=== PATIENT | male | born 1965 | race African-American/Black ===

== ENCOUNTER 2017-01-13 10:38 | Inpatient (IN) ==
[2017-01-13] MEDS ORDERED: ASPIRIN 325 MG TABLET PO STA (11:26)
[2017-01-13] MEDS ORDERED: ONDANSETRON 4 MG/2 ML VIAL IV STA (11:26)
[2017-01-13] MEDS ORDERED: ASPIRIN 325 MG TABLET ONE (11:53)
[2017-01-13] MEDS ORDERED: hydrALAZINE 20 MG/1 ML VIAL ONE (11:53)
[2017-01-13] MEDS ORDERED: ONDANSETRON 4 MG/2 ML VIAL ONE (11:53)
[2017-01-13] MEDS ORDERED: hydrALAZINE 20 MG/1 ML VIAL IV STA ×2 (11:58→14:30)
[2017-01-13 12:21] LABS: Basophils % 0.6 % (0.0-0.8); Eosinophils # 0.1 10*3/uL (0.0-0.87); Hematocrit 50.3 VOL% (42.0-52.0); Hemoglobin 17.5 GM/DL (14.0-18.0); Immature Granulocytes % 0.4 %; Immature Granulocytes Absolute 0.02 #; Lymphocytes # 1.3 10*3/uL (1.4-4.0); Lymphocytes % 26.9 % (21.2-54.2); Mean Corpuscular HGB Conc 34.8 GM/DL (32-36); Mean Corpuscular Hemoglobin 32 PG (27-34); Mean Corpuscular Volume 91.1 FL (87-102); Mean Platelet Volume 10.1 FL (9.6-12.0); Monocytes # 0.4 10*3/uL (0.11-0.8); Monocytes % 8.1 % (1.7-12.7); Platelet Count 189 T/CUMM (130-400); Red Blood Count 5.52 MC/CUMM (3.8-5.5); Red Cell Distribution Width 13.2 % (9.3-17.3); White Blood Count 4.8 T/CUMM (4-12)
[2017-01-13 12:28] LABS: INR 1.1; PT Patient Result 11.2 SECS; Partial Thromboplastin Time 28.7 SECS (0-40)
[2017-01-13 13:19] LABS: Alanine Aminotransferase 47 U/L (16-61); Albumin 4.1 G/DL (3.4-5.0); Alkaline Phosphatase 53 U/L (45-117); Aspartate Amino Transferase 30 U/L (0-37); Blood Urea Nitrogen 8 MG/DL (7-18); Calcium 9.9 MG/DL (8.5-10.1); Glucose 87 MG/DL (74-106); Osmolality,Calculated 273.5 MOS/KG (273-304); Potassium 3.8 MMOL/L (3.5-5.1); Sodium 139 MMOL/L (136-145); Total Protein 7.5 G/DL (6.4-8.3); Troponin I Only 0.019 NG/ML (0.00-0.045)
[2017-01-13] MEDS ORDERED: ACETAMINOPHEN 325 MG TABLET PO PRN (15:17)
[2017-01-13] MEDS ORDERED: ONDANSETRON 4 MG/2 ML VIAL IV PRN (15:17)
[2017-01-13 16:53] LABS: Risk Ratio 1.92; VLDL CHOLESTEROL 8.8 MG/DL
[2017-01-13] MEDS ORDERED: amLODIPine 10 MG TABLET PO ONE (18:43)
[2017-01-13] MEDS: SODIUM CHLORIDE 0.9% 1,000 ML IV SCH (18:47)
[2017-01-14] MEDS: SODIUM CHLORIDE 0.9% 1,000 ML IV SCH (04:23)
[2017-01-14 06:33] LABS: Basophils % 0.8 % (0.0-0.8); Eosinophils # 0.1 10*3/uL (0.0-0.87); Eosinophils % 1.6 % (0.00-10.9); Hematocrit 48.3 VOL% (42.0-52.0); Hemoglobin 16.5 GM/DL (14.0-18.0); Immature Granulocytes % 0.4 %; Immature Granulocytes Absolute 0.02 #; Lymphocytes # 1.5 10*3/uL (1.4-4.0); Lymphocytes % 29.4 % (21.2-54.2); Mean Corpuscular HGB Conc 34.2 GM/DL (32-36); Mean Corpuscular Hemoglobin 32 PG (27-34); Mean Corpuscular Volume 92.4 FL (87-102); Mean Platelet Volume 10.6 FL (9.6-12.0); Monocytes # 0.5 10*3/uL (0.11-0.8); Monocytes % 9.5 % (1.7-12.7); Neutrophils % 58.3 % (38.7-73.9); Platelet Count 183 T/CUMM (130-400); Red Blood Count 5.23 MC/CUMM (3.8-5.5); Red Cell Distribution Width 13.4 % (9.3-17.3); White Blood Count 5.1 T/CUMM (4-12)
[2017-01-14 06:58] LABS: Calcium 8.7 MG/DL (8.5-10.1); Osmolality,Calculated 278.3 MOS/KG (273-304); Potassium 3.9 MMOL/L (3.5-5.1)
[2017-01-14] MEDS ORDERED: ASPIRIN EC 81 MG TABLET PO SCH (09:00)
[2017-01-14] MEDS ORDERED: PANTOPRAZOLE 40 MG TABLET PO SCH (09:00)
[2017-01-14] MEDS ORDERED: amLODIPine 10 MG TABLET PO SCH (09:00)
[2017-01-14] MEDS ORDERED: LISINOPRIL 20 MG TABLET PO ONE (11:15)
[2017-01-14 15:01] VITALS: BP 146/96
== END 2017-01-14 14:20 | disposition home or self-care (01) | DRG 69 ==
LOC: N.ED 10:38 → N.EDINP 13:48 → SUATTDRO 13:48 → N.EDINP 14:48 → N.4E 15:07
PROVIDERS: ADMIT Hospitalist; ATTEND Internal Medicine